=== PATIENT | female | born 2005 | race Hispanic/Latino ===

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

== ENCOUNTER 2025-05-19 11:45 | Emergency (ER) | payer SELFPAY ==
[~2025-05-19] VITALS: Ht 165.1 cm; Wt 59.9 kg
[~2025-05-19 11:45] MED LIST changes: +ONDA-243 PO
[2025-05-19] MEDS: NAPROXEN 250 MG TAB PO ONE (12:30)
[2025-05-19] MEDS ORDERED: AMOX1TAB16 PO (12:33)
[2025-05-19] MEDS ORDERED: NAPR-1194 PO (12:34)
--- NOTE | 2025-05-19 12:34 | ERN ---
General Chief Complaint: Neck Pain Stated Complaint: NECK PAIN Time Seen by MD: 11:51 Source: patient History of Present Illness Initial Comments Patient is a 19-year-old female coming in to be evaluated for right-sided neck discomfort and right ear pain. She states that this has been ongoing for two days. No fever no chills. Allergies: Coded Allergies: No Known Drug Allergies (Unverified Allergy, Unknown, 11/25/20) Home Meds Active Scripts Ondansetron (Ondansetron Odt) 4 Mg Tab.rapdis, 1 TAB PO Q6HPRN PRN for nausea/vomiting for 4 Days, #16 TAB 0 Refills Prov:WILL REYES MD 07/27/24 Acetaminophen (Tylenol) 500 Mg Tab, 500 MG PO Q6HPRN PRN for PAIN LEVEL 1 TO 5 for 5 Days, #30 TAB Prov:ARI HOLLY MD 01/04/23 Past Medical History Past Medical History: No Pertinent History Past Surgical History: None Social History Social History: Lives with family ROS Dictation CONSTITUTIONAL: No chills, no fever, no weakness, no diaphoresis, no malaise. HEAD/FACE: No signs of trauma. EENT: No eye pain, no blurred vision, no tearing, no double vision, ear pain, no ear discharge, no nose pain, no nasal congestion, no throat pain, no throat swelling, no mouth pain. RESPIRATORY: No cough, no orthopnea, no SOB, no stridor, no wheezing. CARDIOVASCULAR: No chest pain, no edema, no palpitations, no syncope. GASTROINTESTINAL/ABDOMINAL: No abdominal pain, no constipation, no diarrhea, no nausea, no vomiting. GENITOURINARY: No abnormal discharge, no dysuria, no frequent urination, no hematuria. No complaints of pain in the genitals. MUSCULOSKELETAL: No back pain, no gout, no joint pain, no joint swelling, muscle pain, no muscle stiffness, neck pain. INTEGUMENTARY: No change in color, no change in hair/nails, no dryness, no lesion, no lumps, no rash. NEUROLOGICAL/PSYCH: No anxiety, not depressed, no emotional problem, no headac he, no numbness, no pre-existing deficit, no history of seizures, no tremors, no weakness. HEMATOLOGIC/LYMPHATIC: Not anemic, no history of blood clots, no apparent bleeding, no bruising, glands not swollen. All Systems Negative, Except as Noted. Physical Exam Physical Exam Dictation VITAL SIGNS: Reviewed. GENERAL APPEARANCE: Alert, oriented x3, no acute distress, obese. HEAD AND FACE: Non-traumatic. EYES: PERRL, pink conjunctivas, eyelid no trauma, anterior chamber clear. EARS: Pinnas intact and no signs of trauma or erythema. Ear canals clear and no discharge. TMs erythema. NOSE: No discharge, no bleeding. OROPHARYNX: Mouth normal, teeth no caries, tongue pink. Pharynx clear, no erythema. Tonsils no exudates, no abscesses noted. Mucous membrane moist. NECK: Supple, non-tender, no thyromegaly, no masses, no JVD, no bruits. BREAST: Deferred. CHEST: No tenderness, no crepitus, no paradoxical movement, no retractions. LUNGS: Clear, well-ventilated, symmetric, no rales, no wheezing, no rhonchi, no stridor, good breath sounds bilaterally. HEART: Regular rate, regular rhythm, no murmur, no gallops. VASCULAR: No peripheral edema. ABDOMEN: Soft, positive bowel sounds, nondistended, no guarding, nontender, no rebound, no masses no hepatomegaly, no splenomegaly, no Choi's sign, no hernias. RECTAL: Deferred. GENITAL: Deferred. NEUROLOGICAL: Normal speech, gross motor function intact, gross sensory function intact. MUSCULOSKELETAL: Neck nontender, full range of motion, back nontender, full range of motion. EXTREMITIES: Nontender, full range of motion. Right trapezius muscle tenderness on palpation SKIN: Color pink, dry, no turgor, no rash, no lacerations, no abrasions, no contusions. LYMPHATICS: Deferred. Results Laboratory and Microbiology Labs Reviewed?: Yes MDM MDM: Differential diagnosis: Otitis media, muscle strain, Rationale: Tests considered and ordered secondary to shared decision making include: Previous outside records reviewed: Old ER visits. Risk of complication and/or morbidity or mortality of patient management: None Medications-Per medication reconciliation Need for hospitalization: Patient does not meet criteria for hospitalization. Need for emergency major/minor surgery: No Patient is a 19-year-old female coming in complaining of right-sided neck discomfort as well as right ear pain. On physical exam right otitis media as well as right trapezius muscle tenderness. Patient will be discharged with medication for pain as well as antibiotics. ED Course Orders Procedure Category Date Status Time Naproxen (Naprosyn) PHA 05/19/25 Verified 12:30 Vital Signs Date Time Temp Pulse Resp B/P (MAP) Pulse Ox O2 Delivery O2 Flow Rate FiO2 05/19/25 11:57 99.3 89 18 132/85 99 Room Air* 0 21 05/19/25 11:51 99.3 89 18 132/85 99 DX & DISP Disposition: Discharge Departure Impression: Primary Impression: Otitis media Additional Impression: Spasm of right trapezius muscle Condition: Stable Scripts Naproxen (Naproxen) 500 Mg Tablet 1 TAB PO BID for pain for 7 Days, #14 TAB 0 Refills Prov: ARI HOLLY MD 05/19/25 Amoxicillin/Potassium Clav (Amox Tr-K Clv 875-125 mg Tab) 875 Mg-125 Mg Tablet 1 TAB PO BID for 10 Days, #20 TAB 0 Refills Prov: ARI HOLLY MD 05/19/25 Additional Instructions: FOLLOW-UP WITH PRIMARY CARE PROVIDER IN 1 TO 2 DAYS. TAKE MEDICATIONS DIRECTED HERE IN THE EMERGENCY ROOM. OKAY TO CONTINUE HOME MEDICATIONS UNLESS OTHERWISE DISCUSSED DURING YOUR VISIT IN THE EMERGENCY ROOM TODAY. RETURN TO YOUR NEAREST EMERGENCY ROOM IF SYMPTOMS WORSEN OR IF THERE IS NO IMPROVEMENT. CALL 911 IF YOU NEED IMMEDIATE ASSISTANCE. TAKE TYLENOL [id number] NEEDED AND IF NO CONTRAINDICATIONS ARE PRESENT. INCREASE ORAL HYDRATION. A WOU ND CULTURE OR URINE CULTURE WAS ORDERED HERE IN THE EMERGENCY ROOM DEPARTMENT PLEASE FOLLOW-UP WITH PRIMARY CARE PROVIDER AND ADVISE THEM TO GET REPORTS FROM OUR FACILITY. IF YOU HAD ANY BEATRICE WRAP/SPLINTS THAT WERE APPLIED HERE, PLEASE DO NOT REMOVE THEM UNTIL YOU SEE YOUR PRIMARY CARE OR SPECIALTY. Referrals: Referrals: BECCA HENRY MD (PCP) Time of Disposition: 12:33 ARI HOLLY MD May 19, 2025 12:34
[2025-05-19 12:50] VITALS: BP 131/82; PULSE 78; RESP 16; TEMP 99.3; O2SAT 99
== END 2025-05-19 13:00 | disposition home or self-care (01) ==
LOC: EDH 11:45
DX: H66.91 Otitis media, unspecified, right ear (principal); M62.830 Muscle spasm of back; Z79.899 Other long term (current) drug therapy
CPT/HCPCS: 99283

== ENCOUNTER 2025-05-23 23:42 | Emergency (ER) | payer SELFPAY ==
[~2025-05-23] VITALS: Ht 165.1 cm; Wt 60.8 kg
[~2025-05-23 23:42] MED LIST changes: +AMOX1TAB16 PO; +NAPR-1194 PO
[2025-05-24 00:11] LABS: RAPID GROUP A STREP negative (NEGATIVE)
[2025-05-24 00:13] LABS: SARS-CoV-2, RNA, NAAT NEGATIVE SARS CoV-2 (NEGATIVE)
[2025-05-24 00:18] LABS: INFLUENZA TYPE A Negative For Type A (NEGATIVE); INFLUENZA TYPE B Negative For Type B (NEGATIVE)
[2025-05-24] MEDS ORDERED: IBUP-1492 PO (00:32)
[2025-05-24] MEDS ORDERED: CEFD300C3 PO (00:32)
--- NOTE | 2025-05-24 00:33 | ERN ---
ED Note History of Present Illness Stated Complaint: C/O SORE THROAT,FEVER, MUSCLE PAIN,NAUSEA Chief Complaint: Sore Throat Time Seen by MD: 23:48 Dictation: 19-YEAR-OLD FEMALE PRESENTS TO ER COMPLAINTS OF RIGHT EAR PAIN, RIGHT-SIDED NECK PAIN, AND FEVER. STATES WAS IN ER A FEW DAYS AGO AND MEDICATIONS PRESCRIBED ARE NOT WORKING. Allergies: Coded Allergies: No Known Drug Allergies (Unverified Allergy, Unknown, 11/25/20) Home Meds Active Scripts Ibuprofen (Ibuprofen) 600 Mg Tablet, 600 MG PO Q6H PRN for PAIN, #15 TAB Prov:ALEXANDRO ORTIZ NP 05/24/25 Cefdinir (Cefdinir) 300 Mg Capsule, 1 CAP PO BID for 10 Days, #20 CAP 0 Refills Prov:ALEXANDRO ORTIZ NP 05/24/25 Naproxen (Naproxen) 500 Mg Tablet, 1 TAB PO BID for pain for 7 Days, #14 TAB 0 Refills Prov:ARI HOLLY MD 05/19/25 Amoxicillin/Potassium Clav (Amox Tr-K Clv 875-125 mg Tab) 875 Mg-125 Mg Tablet, 1 TAB PO BID for 10 Days, #20 TAB 0 Refills Prov:ARI HOLLY MD 05/19/25 Ondansetron (Ondansetron Odt) 4 Mg Tab.rapdis, 1 TAB PO Q6HPRN PRN for nausea/vomiting for 4 Days, #16 TAB 0 Refills Prov:WILL REYES MD 07/27/24 Acetaminophen (Tylenol) 500 Mg Tab, 500 MG PO Q6HPRN PRN for PAIN LEVEL 1 TO 5 for 5 Days, #30 TAB Prov:ARI HOLLY MD 01/04/23 Past Medical History Past Medical History: No Pertinent History Surgical History: None Social History: Lives with family LMP: May 20, 2025 Review of System Dictation CONSTITUTIONAL: NEGATIVE FOR CHILLS, AND WEIGHT LOSS. POSITIVE FEVER EYES: NEGATIVE FOR INJURY, PAIN,REDNESS, AND DISCHARGE ENT: NEGATIVE FOR INJURY, POSITIVE RIGHT EAR PAIN, POSITIVE RIGHT-SIDED NECK PAIN. POSITIVE SORE THROAT. CARDIOVASCULAR: NEGATIVE FOR CHEST PAIN, PALPITATIONS, AND EDEMA RESPIRATORY: NEGATIVE FOR SHORTNESS OF BREATH, COUGH, WHEEZING, AND PLEURITIC CHEST PAIN ABDOMEN/GI: NEGATIVE FOR ABDOMINAL PAIN, NAUSEA, VOMITING, DIARRHEA, AND CONSTIPATION BACK: NEGATIVE FOR INJURY AND PAIN : NEGATIVE FOR INJURY, BLEEDING AND DISCHARGE MS/EXTREMITY: NEGATIVE FOR INJURY AND DEFORMITY SKIN: NEGATIVE FOR RASH, AND DISCOLORATION NEURO: NEGATIVE FOR HEADACHE, WEAKNESS, NUMBNESS, TINGLING, AND SEIZURE PSYCH: NEGATIVE FOR SUICIDE IDEATION, HOMICIDAL IDEATION, AND HALLUCINATIONS ALLERGY/IMMUNOLOGY: NEGATIVE FOR HIVES, RASH, AND ALLERGIES Initial Vital Sign VS Vital Signs Date Time Temp Pulse Resp B/P (MAP) Pulse Ox O2 Delivery O2 Flow Rate FiO2 05/23/25 23:51 100.2 102 20 124/74 99 Room Air 05/24/25 00:44 0 21 Physical Exam Dictation GENERAL: AWAKE, ALERT, NAD HEAD/FACE: NORMOCEPHALIC, ATRAUMATIC EYES: PERRL, EOMI, VISION AT BASELINE ENT: RIGHT TM BULGING AND RED, RED THROAT, POSITIVE RIGHT-SIDED LYMPH NODE SWELLING. NECK: TRACHEA MIDLINE, SUPPLE, NO NUCHAL RIGIDITY CARDIOVASCULAR: RRR, NORMAL S1/S2, NO MRGS, NO JVD RESPIRATORY: CTAB, NO RESPIRATORY DISTRESS, NO RALES OR WHEEZES ABDOMEN: SOFT, NON-TENDER, NON-DISTENDED, NORMAL BOWEL SOUNDS, NO GUARDING OR REBOUND. SKIN: WARM, DRY, NORMAL TURGOR, NO RASH MS/EXTREMITY: PULSES EQUAL, NO CYANOSIS, NEUROVASCULAR INTACT, FROM NEURO: COAX4, GCS 15, STRENGTH 5/5, CN 2-12 INTACT, NORMAL CEREBELLAR EXAM, NORMAL GAIT, PSYCH: NORMAL BEHAVIOR, MOOD, AND AFFECT NORMAL Results (Laboratory/Radiology) Laboratory/Radiology Laboratory Tests Test 05/23/25 23:49 Influenza Type A Antigen Negative For Type A Influenza Type B Antigen Negative For Type B SARS-CoV-2, RNA, NAAT NEGATIVE SARS CoV-2 Group A Streptococcus Rapid negative (NEGATIVE) ED Course ED Course Orders Procedure Category Date Status Time Covid Rna Naat LAB 05/23/25 Complete 23:44 Influenza Type A & B, LAB 05/23/25 Complete Rapid 23:44 Rapid (Group A Strep) LAB 05/23/25 Complete 23:44 Ibuprofen 600 Mg PHA 05/24/25 Complete Tablet (Motrin) 00:30 Current Medications Medications (Trade) Dose Ordered Sig/Roc Route PRN Reason Start Time Stop Time Status Last Admin Dose Admin Ibuprofen (moTRIN) 600 mg ONCE ONCE PO 05/24/25 00:30 05/24/25 00:33 DC 05/24/25 00:54 Vital Signs Date Time Temp Pulse Resp B/P (MAP) Pulse Ox O2 Delivery O2 Flow Rate FiO2 05/24/25 00:44 99.5 91 18 129/68 100 Room Air* 0 21 05/23/25 23:51 100.2 102 20 124/74 99 Room Air Medical Decision Making MDM 19-YEAR-OLD FEMALE PRESENTS TO ER COMPLAINTS OF RIGHT EAR PAIN, RIGHT-SIDED NECK PAIN, AND FEVER. STATES WAS IN ER A FEW DAYS AGO AND MEDICATIONS PRESCRIBED ARE NOT WORKING. . MDM: DIFFERENTIAL DIAGNOSIS: OTITIS MEDIA, OTITIS EXTERNA, TONSILLITIS, PHARYNGITIS, STREP THROAT, INFLUENZA, COVID RATIONALE: TESTS CONSIDERED AND ORDERED SECONDARY TO SHARED DECISION MAKING INCLUDE: LABS, ECG AND RADIOLOGY PREVIOUS OUTSIDE RECORDS REVIEWED: OLD ER VISITS. RISK OF COMPLICATION AND/OR MORBIDITY OR MORTALITY OF PATIENT MANAGEMENT: NONE MEDICATIONS-PER MEDICATION RECONCILIATION NEED FOR HOSPITALIZATION: PATIENT DOES NOT MEET CRITERIA FOR HOSPITALIZATION. NEED FOR EMERGENCY MAJOR/MINOR SURGERY: NO PATIENT LAB FOR INFLUENZA COVID AND STREP NEGATIVE. PATIENT ADVISED WE WILL CHANGE ANTIBIOTICS DUE TO NOT IMPROVING WITH PREVIOUSLY PRESCRIBED MEDICATIONS. WILL START ON CEFDINIR. PATIENT AGREES WITH PLAN. PATIENT VSS, NAD, NONTOXIC, STABLE FOR DISCHARGE. PT GIVEN DISCHARGE INSTRUCTIONS IN [place]MAN TERMS AND UNDERSTOOD, ALL QUESTIONS ANSWERED. PT WILL FOLLOW UP WITH PCP AND RETURN TO THE ER IF WORSE. THERE ARE NO SOCIAL CONCERNS WITH THIS PATIENT. PRESCRIPTION DRUG MANAGEMENT PRESCRIPTIONS WILL INCLUDE SYMPTOMATIC CARE PATIENT'S PRIOR EXTERNAL MEDICAL RECORDS FROM OTHER ER VISITS WERE REVIEWED BY ME INDICATED. PRIOR TESTING AND RESULTS FROM PREVIOUS VISITS WERE REVIEWED. PRIOR TESTS WERE TAKEN INTO ACCOUNT WITH MEDICAL DECISION MAKING AND RESOURCE UTILIZATION, INDEPENDENT HISTORIAN/HISTORIANS WERE USED TO OBTAIN COMPLETE MEDICAL HISTORY. I INDEPENDENTLY INTERPRETED THE TEST THAT WERE PERFORMED, RESULTS WERE REVIEWED BY ME AND CONSIDERED FINDINGS ON RADIOLOGY IF ORDERED. DX & DISP Disposition: Discharge Departure Impression: Primary Impression: Otitis media Additional Impressions: Sore throat, Neck pain, Viral illness Condition: Stable Scripts Ibuprofen (Ibuprofen) 600 Mg Tablet 600 MG PO Q6H PRN for PAIN, #15 TAB Prov: ALEXANDRO ORTIZ FOREST PATHOLOGY PROFESSOR 05/24/25 Cefdinir (Cefdinir) 300 Mg Capsule 1 CAP PO BID for 10 Days, #20 CAP 0 Refills Prov: ALEXANDRO ORTIZ FOREST PATHOLOGY PROFESSOR 05/24/25 Additional Instructions: STOP YOUR ANTIBIOTICS PREVIOUSLY PRESCRIBED AND THE PAIN MEDICATION PRESCRIBED. START THIS NEW MEDICATIONS SENT FOR THE INFECTION AND FOR PAIN FOLLOW-UP WITH YOUR PCP IN 24-72 HOURS AND IN THE EVENT IF SYMPTOMS WORSEN OR AN EMERGENCY OVERNIGHT REPORT TO THE ED IMMEDIATELY Referrals: BECCA HENRY MD (PCP) ALEXANDRO ORTIZ NP May 24, 2025 00:33
[2025-05-24 00:44] VITALS: BP 129/68; PULSE 91; RESP 18; TEMP 99.5; O2SAT 100
== END 2025-05-24 01:00 | disposition home or self-care (01) ==
LOC: EDH 23:42
DX: H66.91 Otitis media, unspecified, right ear (principal); J02.9 Acute pharyngitis, unspecified; M54.2 Cervicalgia; B34.9 Viral infection, unspecified; Z20.822 Contact with and (suspected) exposure to COVID-19
CPT/HCPCS: 87635; 87804; 87880; 99283